=== PATIENT | male | born 2000 | race Caucasian/White ===

== ENCOUNTER 2018-03-21 11:11 | Emergency (ER) | payer BC ==
[2018-03-21 11:25] VITALS: BP 128/74
[2018-03-21] MEDS ORDERED: Ibuprofen TAB* 600 MG PO ONE (12:28)
--- NOTE | 2018-03-21 13:03 | RAD ---
INDICATION: Left ring finger laceration. TECHNIQUE: 3 views of the left ring finger were obtained. FINDINGS: There is soft tissue swelling and soft tissue defect at the tip of the finger. No fracture or radiopaque foreign body is seen. IMPRESSION: SOFT TISSUE INJURY, NO FOREIGN BODY IS SEEN.
[2018-03-21] MEDS ORDERED: Cephalexin CAP* 500 MG PO ONE (13:21)
--- NOTE | 2018-03-21 13:23 | ED ---
Skin Complaint - HPI Summary HPI Summary: Pt here w/ 4th finger lac last night - reports he's unsure how this happened. States he was in a crowd of people and then he all of a sudden noticed his finger was bleeding. The area is scabbed over today but is sore. He has not tried anything for pain at this time. Denies n/t/w. 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 Unsure if he has a FB. - History of Current Complaint Chief Complaint: EDLacSutureRecheck Time Seen by Provider: 03/21/18 12:07 Stated Complaint: FINGER LAC Hx Obtained From: Patient, Family/Financial Business Analyst - male friend Pain Intensity: 5 - Allergy/Home Medications Allergies/Adverse Reactions: Allergies Allergy/AdvReac Type Severity Reaction Status Date / Time No Known Allergies Allergy Verified 03/21/18 11:25 PMH/Surg Hx/FS Hx/Imm Hx Previously Healthy: Yes Endocrine/Hematology History: Denies: Hx Anticoagulant Therapy, Hx Blood Disorders, Autoimmune Disease - Immunization History Immunizations Up to Date: Yes Infectious Disease History: No Infectious Disease History: Denies: Hx of Known/Suspected MRSA, Traveled Outside the in Last 30 Days - Social History Alcohol Use: Weekly Substance Use Type: Reports: Marijuana Substance Use Comment - Amount & Last Used: occ Smoking Status (MU): Never Smoked Tobacco Review of Systems Constitutional: Negative Musculoskeletal: Negative Skin: Other - lac Neurological: Negative Psychological: Normal All Other Systems Reviewed And Are Negative: Yes Physical Exam Vital Signs On Initial Exam: Initial Vitals Temp Pulse Resp BP Pulse Ox 98.3 F 67 16 128/74 98 03/21/18 11:13 03/21/18 11:13 03/21/18 11:13 03/21/18 11:13 03/21/18 11:13 Skin: Positive: Warm, Skin Color Reflects Adequate Perfusion, Dry - lac over distal tip 4th finger Lt hand - scabbed closed - ecchymosis close to wound - mild erythema - no streaking, no d/c Musculoskeletal: Positive: Normal, Strength/ROM Intact Neurological: Positive: Normal, Sensory/Motor Intact, Alert, Oriented to Person Place, Time, CN Intact II-III Psychiatric: Positive: Other - cryptic, anxious Diagnostics - Vital Signs Vital Signs Temp Pulse Resp BP Pulse Ox 03/21/18 11:13 98.3 F 67 16 128/74 98 - Laboratory Lab Statement: Any lab studies that have been ordered have been reviewed, and results considered in the medical decision making process. Discharge - Sign-Out/Discharge Documenting (check all that apply): Discharge/Admit/Transfer - Discharge Plan Condition: Stable Disposition: HOME Prescriptions: Cephalexin CAP* [Keflex CAP*] 500 mg PO BID #9 cap Patient Education Materials: Finger Laceration (ED) [facility] - Additional Instructions: Soak finger in soapy water 2 x day for 20 minutes - rinse well then pat dry and reapply triple antibiotic ointment with bandaid. Complete antibiotic pills as directed Rest, ice, elevate for pain and swelling Follow-up with [facility] next week if symptoms are worsening - streaking, purulent drainage, fever, chills, finger stiffness - Billing Disposition and Condition Condition: STABLE Disposition: HOME
[2018-03-21] MEDS ORDERED: Bacitracin OINTMENT* 0.5% 0.5 oz TUBE TOPICAL ONE (13:26)
== END 2018-03-21 13:39 | disposition home or self-care (01) ==
LOC: ED 11:11
DX: S61.215A Laceration without foreign body of left ring finger without damage to nail, initial encounter (principal); X58.XXXA Exposure to other specified factors, initial encounter; Y92.9 Unspecified place or not applicable
CPT/HCPCS: 73140; 99282; A9270-GY